=== PATIENT | male | born 1960 | race Caucasian/White ===

== ENCOUNTER → 2024-07-27 08:35 | Outpatient (BNVA) | payer MEDICARE, SELFPAY | PROVIDERS: PCP Nurse Practitioner Family; Visit Provider Nurse Practitioner Family | DX: E11.9 Type 2 diabetes mellitus without complications; E78.2 Mixed hyperlipidemia; Z12.5 Encounter for screening for malignant neoplasm of prostate; E55.9 Vitamin D deficiency, unspecified | CPT/HCPCS: 80053; 80061; 81003; 82306; 83036; 84443; 85025; G0103 ==

== ENCOUNTER → 2024-08-03 10:58 | Outpatient (BNVA) | payer MEDICARE, SELFPAY | PROVIDERS: PCP Nurse Practitioner Family; Visit Provider Student in an Organized Health Care Education/Training Program | DX: Z12.11 Encounter for screening for malignant neoplasm of colon (principal) | CPT/HCPCS: 99024; 99204 ==

== ENCOUNTER 2024-09-06 09:01 | Day surgery (SDC) | payer MEDICARE, SELFPAY ==
--- NOTE | 2024-09-05 12:33 | ANES.PREANE2 ---
Pre-Anesthetic Assessment Height/Weight: Height 5 ft 11 in Preop Diagnosis: Screening colonoscopy Operation Date: 09/06/24 10:15 Proposed Procedures p Colonoscopy 80877, G0105, Z12.11(Not Applicable) - Harjinder Nguyen MD Was Beta Maria Alejandra taken within 24 hours: N/A Was Clonidine taken within 24 hours: N/A Social No alcohol and No tobacco Exam alert, oriented x 3, clear to auscultation bilaterally and regular rate & rhythm Airway Submandibular: within normal limits Cervical ROM: within normal limits Mallampati: Class II Dentition: full Comments: Comments: . Anesthetic Plan Anesthesia: MAC Other: No prior issues with anesthesia Completed bowel prep History of type 2 diabetes on metformin, glipizide and empagliflozin. Preop BS 124 Labs reviewed from 07/27/2024 and acceptable for procedure. NA 135 at that time Plan for MAC anesthetic Medications/Allergies Home Medications ?Medication ?Instructions ?Recorded ?Confirmed ?Last Taken ?Type empagliflozin 25 mg tablet 25 mg PO DAILY 06/29/24 09/02/24 09/04/24 History (Jardiance) glipizide 10 mg tablet 10 mg PO BID 06/29/24 09/02/24 09/05/24 History lovastatin 40 mg tablet 40 mg PO DAILY 06/29/24 09/02/24 09/05/24 History metformin 1,000 mg tablet 1,000 mg PO BID 06/29/24 09/02/24 09/05/24 History tamsulosin 0.4 mg capsule (Flomax) 0.4 mg PO DAILY 30 days #30 caps 06/29/24 09/02/24 09/05/24 Rx sitagliptin phosphate 50 mg tablet 50 mg PO DAILY 30 weeks #30 tabs 08/02/24 09/02/24 09/04/24 Rx (Januvia) Allergies Allergy/AdvReac Type Severity Reaction Status Date / Time clindamycin Allergy Unknown Verified 09/02/24 09:21 Penicillins Allergy Unknown Verified 09/02/24 09:21 Sulfa (Sulfonamide Allergy Unknown Verified 09/02/24 09:21 Antibiotics) [facility] Anesthesia Medical History (Updated 08/03/24 @ 11:17 by REINA Villa) Vitamin D deficiency Prostate cancer screening Hx of colonic polyps Encounter to establish care BPH associated with nocturia Colon polyps Diverticulosis Basal cell carcinoma of left shoulder Squamous cell carcinoma of left ear Mixed hyperlipidemia Type II diabetes mellitus, well controlled Surgical History (Updated 08/03/24 @ 11:16 by REINA Villa) Hx of tonsillectomy Social History Smoking and tobacco/nicotine status: never used tobacco/nicotine Data Anesthesia Cardiac Studies: No Data to Display
[2024-09-06 09:19] VITALS: BP 131/71; PULSE 78; RESP 18; TEMP 36.1; O2SAT 97; BMI 25.9
[2024-09-06] MEDS: sodium chloride 0.9% 500 ML 15 ML IV (09:34)
[2024-09-06 09:37] LABS: Glucose Point of Care 124 mg/dL (70-110)
--- NOTE | 2024-09-06 11:44 | W.PM.OPSFHP ---
Same Day Surgery H&P Indication for Procedure/HPI DATE OF PROCEDURE: September 06, 2024 CHIEF COMPLAINT/INDICATIONFOR SURGICAL PROCEDURE: screening colonoscopy PREOP DIAGNOSIS: Screening colonoscopy PLANNED PROCEDURE: Operation Date: 09/06/24 10:15 Proposed Procedures p Colonoscopy 63331, G0105, Z12.11(Not Applicable) - Harjinder Nguyen MD Medications/Allergies* Home Medications ?Medication ?Instructions ?Recorded ?Confirmed ?Type empagliflozin 25 mg tablet 25 mg PO DAILY 06/29/24 09/02/24 History (Jardiance) glipizide 10 mg tablet 10 mg PO BID 06/29/24 09/02/24 History lovastatin 40 mg tablet 40 mg PO DAILY 06/29/24 09/02/24 History metformin 1,000 mg tablet 1,000 mg PO BID 06/29/24 09/02/24 History Allergies/Adverse Reactions Allergy/AdvReac Type Severity Reaction Status Date / Time clindamycin Allergy Unknown Verified 09/02/24 09:21 Penicillins Allergy Unknown Verified 09/02/24 09:21 Sulfa (Sulfonamide Allergy Unknown Verified 09/02/24 09:21 Antibiotics) Current Medications: Generic Name Dose Route Start Last Admin Trade Name Freq PRN Reason Stop Dose Admin Sodium Chloride 500 mls @ 15 mls/hr 09/06/24 09:07 09/06/24 09:34 Sodium Chloride 0.9% IV 09/07/24 09:06 15 mls/hr .Q24H PRN Administration COLONOSCOPY FLUIDS Pertinent History/Comorbid Conditions* Medical History (Updated 08/02/24 @ 09:59 by MANDA Benjamin) Vitamin D deficiency Prostate cancer screening Hx of colonic polyps Encounter to establish care BPH associated with nocturia Colon polyps Diverticulosis Basal cell carcinoma of left shoulder Squamous cell carcinoma of left ear Mixed hyperlipidemia Type II diabetes mellitus, well controlled Surgical History (Updated 06/29/24 @ 08:25 by MANDA Benjamin) Hx of tonsillectomy Social History Smoking and tobacco/nicotine status: never used tobacco/nicotine Pertinent Exam Findings alert, oriented x 3, clear to auscultation bilaterally, regular rate & rhythm and procedure specific exam findings abdomen soft, nt, nd Recommendations Surgery/Procedure today Coding Level of Care Code Acute Code for Chg Fwd
[2024-09-06 12:31] VITALS: BP 90/55; PULSE 71; RESP 15; TEMP 36.4; O2SAT 96
[2024-09-06 12:46] VITALS: BP 109/69; PULSE 84; RESP 17; O2SAT 95
[2024-09-06 13:00] VITALS: BP 119/74; PULSE 76; RESP 18; O2SAT 96
== END 2024-09-06 13:10 | disposition home or self-care (01) ==
PROVIDERS: PCP Nurse Practitioner Family; Visit Provider Student in an Organized Health Care Education/Training Program
PROC: 0DJD8ZZ Inspection of Lower Intestinal Tract, Via Natural or Artificial Opening Endoscopic (ICD-10-PCS; CPT 45378; principal; 2024-09-06 10:15)
DX: Z12.11 Encounter for screening for malignant neoplasm of colon (principal); K57.30 Diverticulosis of large intestine without perforation or abscess without bleeding; E11.9 Type 2 diabetes mellitus without complications; Z79.84 Long term (current) use of oral hypoglycemic drugs; Z79.899 Other long term (current) drug therapy; Z88.0 Allergy status to penicillin; Z88.2 Allergy status to sulfonamides; Z86.0100 Personal history of colon polyps, unspecified; E78.2 Mixed hyperlipidemia
CPT/HCPCS: 36416; 82962; G0105; G0121; J2704; J7040

== ENCOUNTER → 2024-09-20 09:03 | Outpatient (BNVA) | payer MEDICARE, SELFPAY | PROVIDERS: PCP Nurse Practitioner Family; Visit Provider Student in an Organized Health Care Education/Training Program | DX: Z09 Encounter for follow-up examination after completed treatment for conditions other than malignant neoplasm (principal) | CPT/HCPCS: 99213 ==

== ENCOUNTER → 2024-10-14 08:11 | Outpatient (BNVA) | payer MEDICARE, SELFPAY | PROVIDERS: PCP Nurse Practitioner Family; Visit Provider Nurse Practitioner Family | DX: E11.9 Type 2 diabetes mellitus without complications (principal) | CPT/HCPCS: 80053; 83036; 85025 ==

== ENCOUNTER → 2025-01-14 08:19 | Outpatient (BNVA) | payer MEDICARE, SELFPAY | PROVIDERS: PCP Nurse Practitioner Family; Visit Provider Nurse Practitioner Family | DX: E11.9 Type 2 diabetes mellitus without complications (principal) | CPT/HCPCS: 80053; 81003; 83036; 85025 ==

== ENCOUNTER → 2025-04-15 08:16 | Outpatient (BNVA) | payer MEDICARE, SELFPAY | PROVIDERS: PCP Nurse Practitioner Family; Visit Provider Nurse Practitioner Family | DX: E11.9 Type 2 diabetes mellitus without complications (principal) | CPT/HCPCS: 80053; 81003; 83036 ==

== ENCOUNTER 2025-04-26 08:15 | Outpatient (RCR) | payer MEDICARE, SELFPAY | END 2025-05-20 23:59 | disposition home or self-care (01) | LOC: WPT 08:15 | PROVIDERS: PCP Nurse Practitioner Family; Visit Provider Nurse Practitioner Family | DX: M75.81 Other shoulder lesions, right shoulder (principal) | CPT/HCPCS: 97161 ==